=== PATIENT | male | born 1960 | race Caucasian/White ===

== ENCOUNTER 2018-07-24 09:27 | Emergency (ER) | payer MEDICAID ==
[~2018-07-24] VITALS: Ht 175.3 cm; Wt 100.0 kg
[~2018-07-24 09:27] MED LIST: ACET-2178 PO; ALLO100T MT; LEVO25TA7 MT; POLY17PO3 PO
[2018-07-24 09:31] VITALS: BP 133/78
== END 2018-07-24 10:50 | disposition left against medical advice (07) ==
LOC: ER 09:27
DX: Z48.02 Encounter for removal of sutures (principal)
CPT/HCPCS: 99281